=== PATIENT | female | born 1985 | race African-American/Black ===

== ENCOUNTER 2017-12-04 07:40 | Day surgery (SDC) | payer OTHER ==
--- NOTE | 2017-12-03 16:24 | RAD REPORT ---
EXAM DESCRIPTION: RAD - Chest Pa And Lat (2 Views) - 12/03/2017 4:00 pm CLINICAL HISTORY: Abdominal pain Chest pain. COMPARISON: No comparisons FINDINGS: The lungs are clear. The heart is normal in size. No displaced fractures. IMPRESSION: No acute or concerning finding suspected.
--- NOTE | 2017-12-03 19:10 | EKG ---
Test Date: 2017-12-03 Test Time: 15:41:40 Condenser Tube Tender: SKG MEASUREMENT RESULTS: Intervals: Rate: 74 WI: 166 QRSD: 102 QT: 368 QTc: 408 [place]: P: 43 WI: 166 QRS: 53 T: 32 INTERPRETIVE STATEMENTS: Normal sinus rhythm Normal ECG No previous ECG available for comparison Electronically Signed On 12-03-17 19:09:41 CDT by Shun Tesfaye
[2017-12-04] MEDS ORDERED: CEFAZOLIN/SWI 1gm 1 GM/10 ML SYR ONE (07:59)
[2017-12-04] MEDS ORDERED: Ringers Lactate 1,000 ML IV ONE ×2 (07:59→10:32)
[2017-12-04] MEDS ORDERED: BUPIVACAINE 0.5% PF 10 ML VIAL ONE (08:17)
[2017-12-04] MEDS ORDERED: FENTANYL CITR 100 MCG/2 ML ONE ×2 (08:57→10:24)
[2017-12-04] MEDS ORDERED: PROPOFOL 200 MG/20 ML VIAL IV ONE (08:57)
[2017-12-04] MEDS ORDERED: MIDAZOLAM HCL 2 MG/2 ML INJ ONE (08:58)
[2017-12-04] MEDS ORDERED: LIDOCAINE 2% MPF 5 ML VIAL ONE (08:59)
[2017-12-04] MEDS ORDERED: ROCURONIUM 50 MG/5 ML VIAL IV ONE (09:00)
[2017-12-04] MEDS ORDERED: GLYCOPYRROLATE 0.2 MG/ML SYR ONE (10:36)
[2017-12-04] MEDS ORDERED: NEOSTIGMINE 1 MG/ML -5 ML SYRINGE ONE (10:36)
[2017-12-04] MEDS: MEPERIDINE HCL 50 MG/ML AMP ONE ×4 (10:58→11:13)
[2017-12-04] MEDS ORDERED: HYDROCODONE/APAP 7.5/325 MG TAB ONE (12:05)
--- NOTE | 2017-12-04 22:41 | OP ---
Date of Procedure: 12/04/2017 Surgeon: Ifeanyi Hinkle MD Regional Production Manager: MARIAM Paige. Preoperative Diagnosis: Incarcerated incisional hernia. Postoperative Diagnosis: Incarcerated incisional hernia. Procedure: Laparoscopic assisted repair of incarcerated incisional hernia. Estimated Blood Loss: Minimal. Specimen: Hernia sac. Findings: As above. Anesthesia: General. Complications: None. Disposition: The patient tolerated the procedure in stable condition and taken to recovery in good g eneral condition. Description Of Procedure: The patient was brought to the OR and placed in supine position. General anesthesia was begun. The patient was prepped and draped in usual sterile fashion. Marcaine 0.5% wa s infiltrated locally. A 15-blade was used to make a 2-cm left upper quadrant incision. Subcutaneou s tissue was divided. The fascia was identified and divided. A #1 Vicryl stay suture was placed. P eritoneal cavity was entered with sharp and blunt dissection. A 12-mm trocar was placed into the per itoneal cavity under direct vision. Pneumoperitoneum was established and then two 5-mm trocar were p laced, one in the left lower quadrant and one in the right upper quadrant. Laparoscopy revealed a sm all bowel which was easily reduced from the hernia. It was not attached to the hernia sac. Then, a 6 cm infraumbilical midline incision was made. Subcutaneous tissue was divided. Hernia sac was iden tified and excised approximately a 6 cm defect remained and then primary closure of good fascial edge s was done with #2 nylon then pneumoperitoneum was re-established and then the Bard balloon system me sh 15 x 10 cm was placed into the peritoneal cavity and then tacker was used to tack the mesh to the peritoneal surface and then the balloon component was removed with all pieces intact. Complete cover age of the hernia defect was accomplished. No evidence of bowel injury or bleeding was noted. All t rocars were removed under direct vision. Stay sutures were tied to each other across the fascial def ect. Subcutaneous wound was irrigated. Bleeding controlled with cautery. A 2-0 chromic used to triston roximate the subcutaneous tissue and close the skin. Makanda were used to close skin. Sterile dress ing was applied. The patient was awakened and taken to Recovery in good general condition. Discharge Note: The patient will go to Day Surgery and home when stable. Disposition: Home. Condition: Stable. Discharge Instructions: Resume home medications and diet. Activity as tolerated. No heavy lifting. Remove outer dressing in 2 days. Shower. Keep wound clean and dry. Abdominal binder as ordered. Tylenol No. 3 one tablet p.o. q.4 p.r.n. pain, Phenergan 25 mg p.o. q.6 p.r.n. nausea. Follow up in my office when we call for appointment and incentive spirometry as ordered. JERONIMO/RANCHO Voice ID: [id number] Report ID: [id number]
== END 2017-12-04 13:30 | disposition home or self-care (01) ==
LOC: OR 07:40
PROVIDERS: ATTEND Surgery
PROC: 0WUF4JZ Supplement Abdominal Wall with Synthetic Substitute, Percutaneous Endoscopic Approach (ICD-10-PCS; principal; 2017-12-04 09:00)
DX: K43.1 Incisional hernia with gangrene (principal); E66.2 Morbid (severe) obesity with alveolar hypoventilation
CPT/HCPCS: 71046; 81025; 88302; 93005; J0690; J2175; J2250; J2710; J3010